=== PATIENT | female | born 1990 | race Caucasian/White ===

== ENCOUNTER 2018-12-01 10:21 | Emergency (ER) | payer OTHER ==
[~2018-12-01] VITALS: Ht 160 cm; Wt 54.4 kg
[2019-02-25] MEDS ORDERED: IRON150C PO (08:56)
== END 2018-12-01 11:49 | disposition home or self-care (01) ==
LOC: ER 10:21
DX: S91.114A Laceration without foreign body of right lesser toe(s) without damage to nail, initial encounter (principal); W26.0XXA Contact with knife, initial encounter; Z88.0 Allergy status to penicillin
CPT/HCPCS: 12001; 90471; 90714; 99282-25

== ENCOUNTER 2019-02-27 07:37 | Day surgery (SDC) | payer OTHER ==
[~2019-02-27] VITALS: Ht 160 cm; Wt 57.6 kg
[~2019-02-27 07:37] MED LIST: IRON150C PO
--- NOTE | 2019-02-27 09:00 | NUR ---
Ambulatory in Day Surgery History, Chart, Medications and Allergies reviewed before start of procedure. Lungs clear T/O to Auscultation. Patient confirms NPO status and agrees with scheduled surgery. Patient States Post-Procedure ride home has been arranged.
--- NOTE | 2019-02-27 11:21 | NUR ---
Patient up to Ambulate independently. Gait steady. Discharge instructions reviewed with patient. Patient verbalizes understanding. Copy given to patient to take home. Patient States Post-Procedure ride home has been arranged. Discharged via wheelchair to private car for ride home. ALL BELONGINGS SENT HOME WITH PATIENT. [facility] P[facility] REMAINS [facility].
== END 2019-02-27 23:26 | disposition home or self-care (01) ==
LOC: ORSCMMR 07:37
PROVIDERS: Surgery
PROC: 0DBQXZZ Excision of Anus, External Approach (ICD-10-PCS; principal; 2019-02-27 09:30)
DX: K64.4 Residual hemorrhoidal skin tags (principal); D64.9 Anemia, unspecified
CPT/HCPCS: 88304; J2250; J2405; J2704; J3010; J7120

== ENCOUNTER → 2020-04-21 | Outpatient (CLI) | payer OTHER | END | disposition home or self-care (01) | LOC: LAB SHORT 11:00 → LAB 11:00 | DX: N30.01 Acute cystitis with hematuria (principal) | CPT/HCPCS: 87086 ==

== ENCOUNTER → 2021-02-15 | Outpatient (CLI) | payer OTHER ==
[2021-02-15 13:12] LABS: Source, Urine Clean Catch
[2021-02-15 16:08] LABS: Squamous Epithelial Cells Few /hpf (Few); White Blood Cells, Urine 0-2 /hpf (0-5)
[2021-02-15 16:09] LABS: Bacteria Few /hpf; Mucus Light (0-Heavy); Renal Epithelial Rare /hpf (0-Rare)
== END | disposition home or self-care (01) ==
LOC: LAB 12:10 → LAB SHORT 12:10
PROVIDERS: Nurse Practitioner Family
DX: N28.9 Disorder of kidney and ureter, unspecified (principal); R30.0 Dysuria; R10.30 Lower abdominal pain, unspecified; R39.15 Urgency of urination; R31.9 Hematuria, unspecified; R35.0 Frequency of micturition; R82.90 Unspecified abnormal findings in urine
CPT/HCPCS: 81015; 87086